=== PATIENT | male | born 1990 | race Caucasian/White ===

== ENCOUNTER 2016-08-23 15:56 | Emergency (ER) | payer BC, SELFPAY ==
[2016-08-23] MEDS ORDERED: HYDROcodone/Acetaminophen 10/325 mg Tablet ONE (16:07)
[2016-08-23] MEDS ORDERED: HYDROcodone/Acetaminophen 5/325 mg Tablet ONE (16:08)
== END 2016-08-23 16:17 | disposition home or self-care (01) ==
LOC: BURERS 15:56
DX: K04.7 Periapical abscess without sinus (principal); K02.9 Dental caries, unspecified; F17.210 Nicotine dependence, cigarettes, uncomplicated
CPT/HCPCS: 99282

== ENCOUNTER 2021-05-01 19:25 | Emergency (ER) | payer SELFPAY ==
[2021-05-01 20:05] LABS: Bilirubin Negative (Negative); Blood, Urine Trace (Negative); Clarity Clear (Clear); Glucose, Urine (Dipstick) Negative (Negative); Ketone, Urine Negative (Negative); Leukocyte Small (Negative); Nitrite Negative (Negative); Protein, Urine (Dipstick) Negative (Neg-Trace); Urobilinogen 0.2 mg/dL (Less than 2)
[2021-05-01 20:11] LABS: Specific Gravity, Urine 1.008 (1.002-1.036)
[2021-05-01 20:16] LABS: Bacteria/HPF Rare-Few HPF (None Seen); RBC/HPF 0-3 HPF (0-3); Squamous Epithelial 0-3 HPF (0-3)
[2021-05-01] MEDS ORDERED: Doxycycline 100 MG CAP ONE (20:28)
[2021-05-01] MEDS ORDERED: Ibuprofen 800 MG TAB ONE (20:28)
[2021-05-01] MEDS ORDERED: HYDROcodone/Acetaminophen 5/325 mg Tablet ONE (20:28)
[2021-05-05 04:58] LABS: Chlam.trachomatis by PCR,Urine DETECTED (NotDetected)
== END 2021-05-01 20:43 | disposition short-term general hospital (02) ==
LOC: BURERS 19:25
DX: N43.3 Hydrocele, unspecified (principal); N50.811 Right testicular pain; R82.81 Pyuria; F17.210 Nicotine dependence, cigarettes, uncomplicated
CPT/HCPCS: 81003; 81015; 87086; 87491; 87591; 99284

== ENCOUNTER 2022-05-15 22:35 | Emergency (ER) | payer BC, SELFPAY ==
[2022-05-15] MEDS ORDERED: HYDROcodone/Acetaminophen 5/325 mg Tablet ONE (23:01)
[2022-05-15] MEDS ORDERED: Ibuprofen 200 MG TAB ONE (23:02)
== END 2022-05-15 23:46 | disposition home or self-care (01) ==
LOC: BURERS 22:35
DX: S52.121A Displaced fracture of head of right radius, initial encounter for closed fracture (principal); F17.210 Nicotine dependence, cigarettes, uncomplicated; W17.89XA Other fall from one level to another, initial encounter